=== PATIENT | female | born 1940 | race Caucasian/White ===

== ENCOUNTER → 2021-10-06 | Outpatient (CLI) | payer MEDICARE, BC ==
[~2021-10-06] MED LIST: HYDROCODON-ACE1 EA12 PO; LANSOPRAZOLE30 MG PO; LORTAB 7.5-5001 EACH PO; LOSARTAN POTAS100 MG PO; LOVENOX40 MG/0.4 SQ; NORCO 7.5-3251 EACH PO; NORVASC5 MG PO; PRAVASTATIN SOD20 MG PO; ULTRAM 50MG50 MG PO; XARELTO10 MG PO
== END ==
LOC: RAD 09:06
PROVIDERS: ATTEND Family Medicine
DX: J18.9 Pneumonia, unspecified organism (principal)
CPT/HCPCS: 71046